=== PATIENT | female | born 1970 | race Caucasian/White ===

== ENCOUNTER → 2023-10-12 07:45 | Outpatient (REF) | payer OTHER, SELFPAY | LOC: EMG 07:45 | PROVIDERS: ATTENDING PHYSICIAN Orthopaedic Surgery; FAMILY PHYSICIAN Internal Medicine | DX: R20.0 Anesthesia of skin (principal) | CPT/HCPCS: 95886; 95911 ==

== ENCOUNTER → 2024-03-01 11:42 | Outpatient (REF) | payer OTHER, SELFPAY | LOC: WDC 11:42 | PROVIDERS: ATTENDING PHYSICIAN Internal Medicine | DX: Z12.31 Encounter for screening mammogram for malignant neoplasm of breast (principal) | CPT/HCPCS: 77063; 77067 ==

== ENCOUNTER 2024-08-27 11:55 | Observation (INO) | payer OTHER, SELFPAY ==
[2024-08-27] VITALS (7 sets, daily range): BP systolic 111–162; BP diastolic 46–99; BMI 30.2
[2024-08-27] MEDS: ZOFRAN 4 MG IV ×2 (06:41→07:08)
[2024-08-27] MEDS: NSS 1000 IV ×2 (06:42→16:52)
--- NOTE | 2024-08-27 06:43 | ED.GENMED ---
History of Present Illness
General
Chief Complaint: Abdominal Pain
Source: patient
Exam Limitations: none
Time Seen by Provider: 08/27/24 06:21
History of Present Illness
History of Present Illness:
54-year-old female some cough and fever 3 to 4 days. Started with GI symptoms in the last 24 hours. Recurrent vomiting. Loose watery stool. No abdominal pain. Some blood in the vomit. Mostly complaining of severe cramps and abdominal pain.
Along with nausea and vomiting. No unusual food ingestion. No travel history. Others are ill with respiratory symptoms although no GI symptoms.
Past History
Past History
ED Past Medical History: Psychiatric
ED Past Surgical History:
Social History
Tobacco: Non-smoker
Alcohol: Occasional
Personal:
Living: with family
Review of Systems
Review of Systems
All Other Systems: Not applicable
Constitutional: Reports fever
Respiratory: Reports cough
Cardiac: Denies chest pain
ABD/GI: Denies bloody stools or black stools
: Reports no symptoms
Phy Exam
Physical Exam
Physical Exam:
GENERAL: Alert and oriented. Not toxic appearing but moaning in pain. Somewhat agitated and cannot appear to get comfortable
EYE: Orbits normal.
NECK: Supple
CARDIAC: Regular rate and rhythm without any obvious murmurs.
LUNGS: Clear breath sounds,normal
ABDOMEN: Soft, bowel sounds present. No distention. No rebound or guarding. Mild reproducible epigastric tenderness.
NEUROLOGICAL: Alert and oriented , grossly non-focal
SKIN: Warm and dry, no rash or lesion, no discoloration, skin intact.
MUSCULOSKELETAL: No edema,no deformity.Good color
PSYCH: Normal and appropriate interaction.
Course
Orders/Labs/Results
Orders:
Orders
08/27/24 06:22
Electrocardiogram (*1) Stat
Reason for Study: Abdominal Pain
EKG- Treatment ONCE
IV Insert/Care/Rem.- Treatment PRN
Urinalysis Reflex To Culture Urgent
0.9% Sodium Chloride 1000 ml [Nss] 1,000 ml IV BOLUS
Ondansetron Injectable [Zofran] 4 mg IV NOW STA
08/27/24 06:35
Complete Blood Count/With Diff Urgent
Comprehensive Metabolic Panel Urgent
HCG, Serum Qualitative Screen Urgent
Lipase Urgent
CXR2 [CR Chest - 2 Views ] Urgent
Comment:
Reason For Exam: Cough/fever
08/27/24 06:36
CT Abd/Pel (IV only)-DH only Urgent
Comment:
Reason For Exam: Upper abdominal pain/vomiting/diarrhea
Test Result ONCE
08/27/24 06:46
COVID-19 Antigen Urgent
Source: Nasal Swab
Influenza A+B Rapid Molecular Urgent
[facility]ONTE Source: Nasal Swab
Specimen Description:
08/27/24 07:04
Lorazepam [Ativan] 1 mg IV NOW STA
Ondansetron Injectable [Zofran] 4 mg IV NOW STA
08/27/24 07:05
Ondansetron Injectable [Zofran] 4 mg .ROUTE .STK-MED ONE
08/27/24 07:06
Lorazepam [Ativan] 2 mg .ROUTE .STK-MED ONE
08/27/24 09:36
Diphenhydramine [Benadryl] 25 mg IV NOW STA
Prochlorperazine [Compazine] 5 mg IV NOW STA
08/27/24 09:37
Diphenhydramine [Benadryl] 50 mg .ROUTE .STK-MED ONE
08/27/24 09:38
Prochlorperazine [Compazine] 10 mg .ROUTE .STK-MED ONE
08/27/24 09:58
Ampicillin/Sulbactam 3 G [Unasyn] 3 gm 0.9% Sodium Chloride 100 ml [Nss] 100 ml IV NOW
08/27/24 10:44
Norovirus by PCR Urgent
[facility]ONTE Source: Feces/Stool
Specimen Description:
Date Specimen was Collected: 08/27/24
Time Specimen was Collected: 10:39
STOOL [C difficile Antigen & Toxins] Urgent
DEVONTE Source: Feces/Stool
Specimen Description:
Date Specimen was Collected: 08/27/24
Time Specimen was Collected: 10:39
Stool Culture Urgent
DEVONTE Source: Feces/Stool
Specimen Description:
Date Specimen was Collected: 08/27/24
Time Specimen was Collected: 10:39
08/27/24 11:35
Admit/Transfer Patient As Directed
Co-Sign Provider:
Level of Care: Inpatient admission
Assign to:: Medical/Surgical
Physician / Group: Elvis/hospitalist
Diagnosis: N/V/D
Reason for Hospitalization: N/V/D
Expected length of stay greater than two midnights?: Yes
ELOS- Estimated Length of Stay in days: 3
I certify the patient meets the requirements for IP care: Yes
Code Status As Directed
Resuscitation Status: Full Code
PRN Pain Medication Management As Directed
May give lesser potent ordered pain med per pt: Yes
preference::
Protocol:: Medication orders for pain may be administered in a
manner that supports deferring to patient preference
when the pt is:
- Requesting an ordered lesser potent pain medication.
Least to most potent pain medications are defined
as: acetaminophen < NSAID < tramadol < opioids
(morphine, oxycodone, hydromorphone).
- Requesting a lesser dose of the same medication IF
ORDERED.
- Requesting a less intrusive route of administration
if both routes are prescribed by the provider (PO <
IV).
08/27/24 12:00
Blood Culture Q30M
[facility]ONTE Source: Blood/Venous
Specimen Description:
Blood Culture Q30M
DEVONTE Source: Blood/Venous
Specimen Description:
08/27/24 12:16
Morphine Sulfate 1 mg IV Q4HPRN PRN
Abnormal Lab Results
08/27/24
06:35
BUN 19 H mg/dl
(7-17)
Glucose 154 H mg/dl
(70-99)
Calcium 10.3 H mg/dl
(8.4-10.2)
Total Bilirubin 1.6 H mg/dl
(0.2-1.3)
08/27/24 06:35
08/27/24 06:35
Vital Signs
Initial and Last Documented VS:
Initial Vital Signs
Pulse Resp BP Pulse Ox
92 26 134/93 97
08/27/24 06:16 08/27/24 06:16 08/27/24 06:16 08/27/24 06:16
Last Documented Vital Signs
Temp Pulse Resp BP Pulse Ox
97.5 F 93 14 162/88 96
08/27/24 07:00 08/27/24 12:02 08/27/24 12:02 08/27/24 12:02 08/27/24 12:02
MDM/Problems Addressed
Differential Diagnosis Includes:
Patient with some recent respiratory symptoms. This seemed to progress to more GI symptoms. Most suspicious for viral gastroenteritis however with patient's level of discomfort would consider a surgical abdomen. Labs CT stool culture neurovirus
testing. With the cough and respiratory symptoms we will check COVID and flu and chest x-ray.
*Pulse Oximetry
Patient hypoxic: no
*Critical Care Note
Total Time (30-74mins, 75-104mins- exclusive of procedures): Not Applicable
ED Attending Note
-
Portions of this chart may have been created with voice recognition software.� Occasional wrong word or��sound alike� substitutions may have occurred due to the inherent limitations of voice recognition software.
Discharge Plan
Departure
Patient Disposition: Admit
Date of Disposition: 08/27/24
Time of Disposition: 09:55
Presentation/result/management discussed w/ accepting MD/DO: Hospitalist
Discharge Problem:
Pain colitis/diverticulitis
Interventions
Interventions:
*General Assessment Last Done: 08/27/24 06:40
*Neglect/Abuse Screening Last Done: 08/27/24 06:40
ED- Fall Risk Assessment Last Done: 08/27/24 06:40
*ED COVID-19 Vaccine History Last Done: 08/27/24 06:40
OK-Juebzv-Lyimgwwyev Assessment Last Done: 08/27/24 06:40
[2024-08-27 07:02] LABS: % Basophils 0.4 % (0-2); % Eosinophils 0.7 % (0-6); % Immature Granulocytes 0.3 % (0-0.5); % Lymphocytes 28.4 % (20.5-51.1); % Monocytes 4.7 % (1.7-9.3); % Neutrophils 65.5 % (42.2-75.2); Absolute Eosinophils 0.1 10^3/uL (0-0.7); Absolute Lymphocytes 2.8 10^3/uL (1.2-3.4); Absolute Monocytes 0.5 10^3/uL (0.1-0.6); Absolute Neutrophils 6.5 10^3/uL (1.4-6.5); Hematocrit 42.3 % (37.0-47.0); Hemoglobin 14.5 g/dL (12.0-16.0); Mean Corp Hgb Conc. 34.3 g/dL (33.0-37.0); Mean Corpuscular Hgb 27.9 pg (27.0-31.0); Mean Corpuscular Volume 81.3 fL (81.0-99.0); Mean Platelet Volume 9.7 fL (7.4-10.4); Nucleated Red Blood Cells % 0 %; Platelet Count 367 10^3/uL (130-400); Red Cell Dist. Width 12.8 % (11.5-14.5)
[2024-08-27] MEDS: ATIVAN 1 MG IV (07:08)
[2024-08-27 07:14] LABS: ALT (SGPT) 23 U/L (0-35); AST (SGOT) 22 U/L (14-36); Albumin 4.9 g/dl (3.5-5.0); Alkaline Phosphatase 50 U/L (38-126); Blood Urea Nitrogen 19 mg/dl (7-17); Calcium 10.3 mg/dl (8.4-10.2); Carbon Dioxide 22 mmol/L (22-30); Chloride 104 mmol/L (98-107); Estimated Creatinine Clearance 113 ml/min; Glucose 154 mg/dl (70-99); Lipase 76 U/L (23-300); Sodium 141 mmol/L (135-145); Total Bilirubin 1.6 mg/dl (0.2-1.3); Total Protein 7.6 g/dl (6.3-8.2); eGFR > 60.00
[2024-08-27 07:36] LABS: HCG, Serum Qualitative Screen Negative
[2024-08-27 07:37] LABS: COVID-19 Antigen Negative (Negative)
[2024-08-27] MEDS: COMPAZINE 5 MG IV ×3 (09:39→17:07)
[2024-08-27] MEDS: BENADRYL 25 MG IV (09:39)
[2024-08-27] MEDS: UNASYN IV (10:40)
--- NOTE | 2024-08-27 11:21 | HPS.HSE ---
Family Physician
-
Family Physician: Louie Ocampo
Chief Complaint
-
N/V/D, abd cramp
History of Present Illness
HPI: 54-year-old female with PMH anxiety; p/w N/V, severe abdominal pain/cramp and watery stool for 24 hours.
She also c/o mild cough and fever 3 to 4 days [employer]. She denies to cough currently, denies to other symptoms.
Family at home are sick with respiratory symptoms without GI symptoms.
Medical History
Past Medical History
Past Medical History: Reports Other
Additional Past Medical History:
anxiety
Past Surgical History: Reports (x2) and Orthopedic (R carpal tunnel surgery )
Social History
Tobacco: Non-smoker
Alcohol: None
Personal:
Living: With Family
Family History
Family History: Not pertinent
Allergies / Home Medications
Allergies reflects when Allergies were last updated in [facility].
Home Medications with original date entered in [facility]
Allergy/Medication List:
Allergies
Allergy/AdvReac Type Severity Reaction Status Date / Time
No Known Allergies Allergy Verified 08/27/24 06:10
Home Medications
alprazolam 0.5 mg tablet 0.5 mg PO DAILYPRN PRN anxiety/insomnia 10/08/15
citalopram 20 mg tablet 20 mg PO DAILY 10/08/15
acetaminophen 325 mg tablet (Tylenol) 650 mg PO Q4HPRN PRN mild pain 08/27/24
meloxicam 15 mg tablet 15 mg PO DAILY 08/27/24
Review of Systems
-
Respiratory: Denies Cough or Trouble Breathing
Abdomen/GI: Reports See HPI, Abdominal Pain, Nausea, Vomiting and Diarrhea
Physical Exam
Vital Signs
Vital Signs
Temp Pulse Resp BP Pulse Ox
36.4 C 98 24 148/97 100
08/27/24 07:00 08/27/24 09:47 08/27/24 09:47 08/27/24 09:47 08/27/24 09:47
Physical Exam
General: Well Developed, Well Nourished, No Apparent Distress and Conversant
HEENT: NormoCephalic, Moist mucous membranes and Atraumatic
Respiratory: Clear and Non Labored Respirations; No Accessory Resp Muscle Use
Cardiac: S1/S2 and Regular Rhythm; No Murmur or Rub
GI: Soft, Non Tender, Non Distended and Normal Bowel Sounds; No Organomegaly
Rectal: Deferred by Provider
Musculoskeletal: No Clubbing, No Cyanosis and No Edema
Skin: No Rash
Neuro: Awake and Alert
Psych: Calm and Intact Judgment/Insight
Laboratory Results
-
08/27/24 06:35
08/27/24 06:35
Laboratory Results
Total Bilirubin 1.6 mg/dl (0.2-1.3) H 08/27/24 06:35
AST 22 U/L (14-36) 08/27/24 06:35
ALT 23 U/L (0-35) 08/27/24 06:35
Alkaline Phosphatase 50 U/L (38-126) 08/27/24 06:35
Lipase 76 U/L (23-300) 08/27/24 06:35
Data Reviewed
-
CT Scan: Report Reviewed by me
Lab Data: Labs Reviewed by me
Impression/Plan
-
HPI: 54-year-old female with PMH anxiety; p/w N/V, severe abdominal pain/cramp and watery stool for 24 hours.
She also c/o mild cough and fever 3 to 4 days [employer]. She denies to cough currently, denies to other symptoms.
Family at home are sick with respiratory symptoms without GI symptoms.
A/P:
# GI symptoms likely acute GE, possible norovirus with current community outbreak
Follow stool Norovirus, C diff, stool culture
Noted CT AP with mild acute uncomplicated sigmoid diverticulitis. Probable sequelae of chronic pancolitis.
cover with Zosyn for the mild diverticulitis
IVF support
Clears for now
pain control with Tylenol and low dose morphine PRN
# Mild cough, resolved
# fever [employer]
family members with cough
COVID/Flu negative
Check blood culture (pt already received Unasyn in the ED)
on Zosyn as above
# h/o anxiety on Citalopram and Alprazolam PRN
Mood stable
DVT ppx: Lovenox SQ
FC
[2024-08-27] MEDS: MORPHINE SULFATE 1 MG IV ×2 (13:00→17:07)
[2024-08-27] MEDS: TIGAN 200 MG IM (15:15)
[2024-08-27] MEDS: ZOSYN 50 IV ×2 (16:51→21:44)
[2024-08-27] MEDS: PEPCID 20 MG IV (18:07)
[2024-08-27] MEDS: NSS (PRESERVATIVE FREE) 8 ML IV (18:08)
[2024-08-28] MEDS: ZOSYN 50 IV ×2 (03:30→10:09)
[2024-08-28] MEDS: NSS 1000 IV (03:30)
[2024-08-28 06:38] LABS: Hematocrit 36.3 % (37.0-47.0); Hemoglobin 12.1 g/dL (12.0-16.0); Mean Corp Hgb Conc. 33.3 g/dL (33.0-37.0); Mean Corpuscular Hgb 27.8 pg (27.0-31.0); Mean Corpuscular Volume 83.4 fL (81.0-99.0); Mean Platelet Volume 10.3 fL (7.4-10.4); Platelet Count 246 10^3/uL (130-400); Red Blood Cell Count 4.35 10^6/uL (4.20-5.40); Red Cell Dist. Width 13.2 % (11.5-14.5); White Blood Cell Count 7.8 10^3/uL (4.8-10.8)
[2024-08-28 06:59] LABS: Blood Urea Nitrogen 15 mg/dl (7-17); Calcium 8.9 mg/dl (8.4-10.2); Carbon Dioxide 23 mmol/L (22-30); Chloride 110 mmol/L (98-107); Estimated Creatinine Clearance 97 ml/min; Glucose 101 mg/dl (70-99); Potassium 3.6 mmol/L (3.5-5.1); Sodium 143 mmol/L (135-145); eGFR > 60.00
[2024-08-28 07:48] VITALS: BP 140/90
[2024-08-28] MEDS: TYLENOL 650 MG PO (08:07)
[2024-08-28 08:09] LABS: Urine Albumin Trace (Neg - Trace); Urine Bilirubin Negative (Negative); Urine Character Clear (Clear); Urine Color Yellow; Urine Glucose Negative (Negative); Urine Ketone Trace (Negative); Urine Leukocyte Trace (Negative); Urine Nitrite Negative (Negative); Urine Occult Blood 1+ (Negative); Urine Specific Gravity 1.025 (<1.030); Urine Urobilinogen Negative (Neg - 1+)
[2024-08-28] MEDS: PEPCID 20 MG IV (08:18)
[2024-08-28] MEDS: CELEXA 20 MG PO (08:18)
[2024-08-28] MEDS: MOBIC 15 MG PO (08:18)
[2024-08-28 08:24] LABS: Amphetamines Positive (Negative)
[2024-08-28 08:25] LABS: Barbiturates Negative (Negative); Benzodiazepines Positive (Negative); Buprenorphine Negative (Negative); Cocaine Positive (Negative); Methadone Negative (Negative); Methamphetamines Positive (Negative); Opiates Positive (Negative)
[2024-08-28 08:26] LABS: Marijuana Positive (Negative); Phencyclidine Negative (Negative); Tricyclic Antidepressants Negative (Negative)
[2024-08-28 09:01] LABS: Fentanyl, Urine Negative (Negative)
[2024-08-28] MEDS: NSS (PRESERVATIVE FREE) 8 ML IV (09:06)
[2024-08-28 09:24] LABS: Urine Squamous Cell >30 /LPF (Few)
[2024-08-28 09:25] LABS: Urine Amorphous Seen
[2024-08-28 09:26] LABS: Urine Bacteria Few (Negative)
--- NOTE | 2024-08-28 11:58 | W.PN.HOSP.TC ---
Addendum entered and electronically signed by Ignacia Leal MD 08/28/24 15:03:
total DC time 36 min
Original Note:
Today's Communication/Plan
-
see A/P
Assessment / Plan
Assessment / Plan
HPI: 54-year-old female with PMH anxiety; p/w N/V, severe abdominal pain/cramp and watery stool for 24 hours.
She also c/o mild cough and fever 3 to 4 days [employer]. She denies to cough currently, denies to other symptoms.
Family at home are sick with respiratory symptoms without GI symptoms.
A/P:
# GI symptoms likely cyclic vomiting syndrome
UDS positive for amphetamine, methamphetamine, benzo, cocaine, marijuana, opiate
Norovirus and C diff negative. Can follow stool culture for completeness sake
Noted CT AP with mild acute uncomplicated sigmoid diverticulitis. Probable sequelae of chronic pancolitis.
IV Zosyn -> Augmentin x5 days total for the mild diverticulitis. Probiotic with Abx
Advance clears to regular solid
pain control with Tylenol and low dose morphine PRN
Outpt GI follow up in 4 weeks
# Mild cough, resolved
# fever [employer]
family members with cough
COVID/Flu negative
Follow blood culture (pt already received Unasyn in the ED)
on Zosyn as above
# h/o anxiety on Citalopram and Alprazolam PRN
Mood stable
DVT ppx: Lovenox SQ
FC
Anticipated Discharge: Today
Subjective/Interval History
-
Date of Service: August 28, 2024
Objective Data
-
Labs:
Laboratory Results
08/28/24
06:09
WBC 7.8
Hgb 12.1
Hct 36.3 L
Plt Count 246 D
Sodium 143
Potassium 3.6
Chloride 110 H
Carbon Dioxide 23
BUN 15
Creatinine 0.7
Glucose 101 H
Calcium 8.9
Vital Signs:
Vital Signs
Temp Pulse Resp BP Pulse Ox
36.9 C 74 15 140/90 97
08/27/24 22:53 08/28/24 07:48 08/28/24 07:48 08/28/24 07:48 08/28/24 07:48
Review of Systems
-
All other systems: Reviewed and negative
Abdomen/GI: Denies Abdominal Pain, Nausea, Vomiting or Diarrhea
Physical Exam
-
General: Well Developed, Well Nourished, No Apparent Distress, Comfortable and Conversant; Negative Respiratory Distress
HEENT: Normocephalic, Atraumatic, Nose Appears Normal and Ears Appear Normal; Negative Oxygen
Respiratory: Clear to Auscultation and Non Labored Respirations; Negative Accessory Resp Muscle Use
Cardiac: Regular Rhythm and S1/S2
GI: Soft, Nontender, Nondistended and Normal Bowel Sounds
Skin: Warm and Dry
Neuro: Awake and Alert
Psych: Calm and Intact Judgement/Insight
Data Reviewed
-
CT Scan: Report Reviewed by me
Labs: Labs Reviewed by me
[2024-08-28] MEDS: VISBIOME 1 CAP PO (12:47)
--- NOTE | 2024-08-28 13:18 | EDRN ---
D/C instructions given to pt. Reviewed next meds. Reviewed diet
--- NOTE | 2024-08-28 14:21 | W.DCSUMMARY ---
Discharge Summary
Discharge Data
Date of Admission: 08/27/24
Date of Discharge: 08/28/24
-
Pending Results: No
Hospital Course
Principal Diagnosis:
Nausea, vomiting, severe abdominal pain/cramp with watery stool, likely cyclic vomiting syndrome
CT scan noted possible mild acute uncomplicated sigmoid diverticulitis
Chronic Diagnoses:�
Anxiety on Citalopram and Alprazolam as needed
Consultations:�
None
Procedures:�
None
Clinical course:�
This is a 54-year-old female with past medical history as stated above, who presented with nausea, vomiting and severe abdominal pain/cramp with watery stool.
Problem 1:
GI symptoms likely due to cyclic vomiting syndrome.
Her UDS was noted to be positive for amphetamine, methamphetamine, benzo, cocaine, marijuana, and opiate.
Her Norovirus and C diff tests were negative.
Her CT AP noted mild acute uncomplicated sigmoid diverticulitis, probable sequelae of chronic pancolitis.
Due to the CT scan finding, she was treated with Zosyn, and this was changed to Augmentin to continue/complete 5 days course.
Her diet was advanced to regular solid food and she tolerated well.
She can follow-up with GI outpatient in 4 weeks to evaluate for colonoscopy in setting of CT finding of acute mild diverticulitis.
As for the rest of her medical problems, they were stable during her hospital stay.
Discharge Plan
-
Patient Disposition: Home (Routine Discharge)
Discharge Diagnosis/Procedures: GI symptoms likely cyclic vomiting syndrome versus mild acute uncomplicated sigmoid diverticulitis.
Condition: Good
Diet: As tolerated
Activity: As tolerated
Driving Restrictions: As prior to admission
Activity Restrictions/Additional Instructions:
Follow up with GI in 4 weeks to evaluate for routine C scope (CT AP noted mild acute uncomplicated sigmoid diverticulitis)
Referrals:
Louie Ocampo I., DO [Family Provider] - in less than 1 week
Additional Discharge Medication Instructions: Continue Levaquin and Flagyl for 5 more days, along with probiotic
Prescriptions:
New
levofloxacin 750 mg tablet
750 mg PO DAILY 5 Days Qty: 5 0RF
metronidazole 500 mg tablet
500 mg PO Q8H 5 Days Qty: 15 0RF
Probiotic 3 billion cell capsule
3,000 mmu cells PO DAILY 7 Days Qty: 7 0RF
Continued
alprazolam 0.5 MG tablet
0.5 mg PO DAILYPRN PRN (Reason: anxiety/insomnia)
citalopram 20 MG tablet
20 mg PO DAILY
acetaminophen [Tylenol] 325 mg Tablet
650 mg PO Q4HPRN PRN (Reason: mild pain)
meloxicam 15 mg Tablet
15 mg PO DAILY
Discharge Orders:
Discharge Patient (As Directed); Ordered 08/28/24
Ordered By: Ignacia Leal
Discharge Date and Time
Discharge Date/Time: 08/28/24 13:30
Print Language: BULGARIAN
== END 2024-08-28 13:30 | disposition home or self-care (01) ==
LOC: ED 11:55
PROVIDERS: ADMITTING PHYSICIAN Internal Medicine; EMERGENCY PHYSICIAN Emergency Medicine; FAMILY PHYSICIAN Internal Medicine
DX: R11.15 Cyclical vomiting syndrome unrelated to migraine (principal); R10.9 Unspecified abdominal pain; R11.2 Nausea with vomiting, unspecified; R19.7 Diarrhea, unspecified; K57.32 Diverticulitis of large intestine without perforation or abscess without bleeding; F41.9 Anxiety disorder, unspecified; K76.0 Fatty (change of) liver, not elsewhere classified; Z79.1 Long term (current) use of non-steroidal anti-inflammatories (NSAID); Z11.52 Encounter for screening for COVID-19
CPT/HCPCS: 71046; 74177; 80048; 80053; 80306; 80307; 81003; 81015; 83690; 83735; 84703; 85025; 85027; 87040; 87045; 87046; 87086; 87324; 87427; 87449; 87502; 87798; 87811; 93005; 96361; 96365; 96367; 96375; 96376; 99285; G0378; Q9967

== ENCOUNTER 2024-10-02 14:52 | Emergency (ER) | payer OTHER, SELFPAY ==
[2024-10-02 15:01] VITALS: BP 128/85
--- NOTE | 2024-10-02 15:03 | ED.GENMED ---
ED Provider Triage
<Ale Hanley REAL ESTATE SALES MANAGER - Last Filed: 10/02/24 15:08>
-
Patient seen by provider in Triage?: Seen in Triage
Attestation: A medical screening examination has been initiated by a qualified medical provider. Based on the assessment performed at this time, it has been determined that an emergent medical condition may exist and the patient has been informed
that further medical evaluation and possible additional diagnostic testing may be needed.
HPI: 54-year-old female states she was here last month and diagnosed with diverticulitis and colitis, finished Levaquin and Flagyl. She feels like she is having 'an episode.' that feels similar. She has an appointment in January for the GI doctor.
States at 2 AM she had diarrhea and vomiting with black tarry stools. Vomited several times. At this time she does not feel nauseous. Denies fever but has had some cold sweats.
Denies chest pain or trouble breathing.
GENERAL: Alert , in no apparent distress
EYE: No visual abnormalities.
NECK: Trachea midline
ENT: No visible abnormalities.
LUNGS: No acute respiratory distress
NEUROLOGICAL: Alert and oriented
SKIN: Skin intact. No visible changes.
MUSCULOSKELETAL: Moving extremities normally
PSYCH: Normal and appropriate interaction.
This is a medical evaluation conducted in person to initiate diagnostic evaluation and provide initial therapeutics. Please see further documentation by the treating clinician.
History of Present Illness
<Ale Hanley REAL ESTATE SALES MANAGER - Last Filed: 10/02/24 15:08>
General
Chief Complaint: Abdominal Pain
Time Seen by Provider: 10/02/24 16:37
<Kerry Romero PA-C - Last Filed: 10/03/24 00:41>
General
Source: patient
Exam Limitations: none
Nursing documentation reviewed up to this point in time: agreed with
History of Present Illness
History of Present Illness:
Patient is a 54-year-old female presenting to the emergency department for evaluation of nausea, vomiting, diarrhea. Patient reports acute onset upper abdominal discomfort accompanied by nausea and vomiting around 2 AM in the morning. She has also
had a few episodes of diarrhea. No known fever although does report cold sweats. Patient states vomiting episodes appear to come in cycles and are very intense. Patient denies any hematemesis. No dysuria or other urinary symptoms.
Patient does report history of very similar symptoms, almost identical about a month ago for which she was admitted to the hospital for 1 night. At that time she was found to have mild diverticulitis.
Past History
<Ale Hanley [employer] ESTATE SALES MANAGER - Last Filed: 10/02/24 15:08>
Past History
ED Past Medical History: Psychiatric
ED Past Surgical History:
Social History
Tobacco: Non-smoker
Alcohol: Occasional
Personal:
Living: with family
Review of Systems
<Kerry Romero PA-C - Last Filed: 10/03/24 00:41>
Review of Systems
Allergies reviewed?: Yes
All Other Systems: ROS reviewed and negative except as documented in HPI and ROS
Phy Exam
<Kerry Romero PA-C - Last Filed: 10/03/24 00:41>
Physical Exam
Physical Exam:
Vitals: Mildly hypertensive, otherwise vital signs stable. Afebrile
General: Patient is in mild distress, actively react
Skin: Warm and dry, no rashes or lesions
Head: Normocephalic, atraumatic
Eyes: Sclera nonicteric. EOMs intact. No nystagmus.
Throat: Protecting airway
Neck: Normal ROM, no cervical spine tenderness, no meningismus
Cardiac: Regular rate and rhythm, no murmurs.
Pulm: Normal respiratory effort, no wheezes, rales, rhonchi heard on exam.
Abdomen: Abdomen soft. Mild epigastric abdominal tenderness. No rebound tenderness or guarding. No CVA tenderness
Extremities: No evidence of cyanosis or edema. Palpable DP pulses bilaterally
Neuro: AAOx3. Grossly intact
Psychiatric: Normal affect.
Course
<Ale Hanley [employer]STATE SALES MANAGER - Last Filed: 10/02/24 15:08>
Orders/Labs/Results
Orders:
Orders
10/02/24 15:06
CT Abd/Pel (IV only)-[facility] only Urgent
Comment:
Reason For Exam: mid lower abd pain, recent colitis/diverticulitis
Test Result ONCE
10/02/24 15:11
Complete Blood Count/With Diff Urgent
Comprehensive Metabolic Panel Urgent
HCG, Serum Qualitative Screen Urgent
Lipase Urgent
10/02/24 16:46
Ondansetron Injectable [Zofran] 4 mg .ROUTE .STK-MED ONE
10/02/24 16:47
0.9% Sodium Chloride 1000 ml [Nss] 1,000 ml IV BOLUS
Ketorolac [Toradol] 15 mg IV NOW STA
10/02/24 16:49
Electrocardiogram (*1) Urgent
Reason for Study: Abdominal Pain
EKG- Treatment ONCE
10/02/24 16:53
Ondansetron Injectable [Zofran] 4 mg IV NOW STA
10/02/24 17:20
Lorazepam [Ativan] 1 mg IV NOW STA
Abnormal Lab Results
10/02/24
15:11
Absolute Neuts (auto) 7.9 H 10^3/uL
(1.4-6.5)
Absolute Lymphs (auto) 0.7 L 10^3/uL
(1.2-3.4)
Neutrophils % 88.5 H %
(42.2-75.2)
Lymphocytes % 8.2 L %
(20.5-51.1)
Creatinine 0.5 L mg/dL
(0.6-1.0)
Glucose 142 H mg/dl
(70-99)
Calcium 10.3 H mg/dl
(8.4-10.2)
ALT 45 H U/L
(0-35)
Albumin 5.2 H g/dl
(3.5-5.0)
10/02/24 15:11
10/02/24 15:11
Vital Signs
Initial and Last Documented VS:
Initial Vital Signs
Temp Pulse Resp BP Pulse Ox
98.4 F 97 16 128/85 97
10/02/24 15:01 10/02/24 15:01 10/02/24 15:01 10/02/24 15:01 10/02/24 15:01
Last Documented Vital Signs
Temp Pulse Resp BP Pulse Ox
98.4 F 103 18 146/83 98
10/02/24 15:01 10/02/24 19:38 10/02/24 19:38 10/02/24 19:38 10/02/24 19:38
<Kerry Romero PA-C - Last Filed: 10/03/24 00:41>
Orders/Labs/Results
Orders:
Orders
10/02/24 15:06
CT Abd/Pel (IV only)-[facility] only Urgent
Comment:
Reason For Exam: mid lower abd pain, recent colitis/diverticulitis
Test Result ONCE
10/02/24 15:11
Complete Blood Count/With Diff Urgent
Comprehensive Metabolic Panel Urgent
HCG, Serum Qualitative Screen Urgent
Lipase Urgent
10/02/24 16:46
Ondansetron Injectable [Zofran] 4 mg .ROUTE .STK-MED ONE
10/02/24 16:47
0.9% Sodium Chloride 1000 ml [Nss] 1,000 ml IV BOLUS
Ketorolac [Toradol] 15 mg IV NOW STA
10/02/24 16:49
Electrocardiogram (*1) Urgent
Reason for Study: Abdominal Pain
EKG- Treatment ONCE
10/02/24 16:53
Ondansetron Injectable [Zofran] 4 mg IV NOW STA
10/02/24 17:20
Lorazepam [Ativan] 1 mg IV NOW STA
Abnormal Lab Results
10/02/24
15:11
Absolute Neuts (auto) 7.9 H 10^3/uL
(1.4-6.5)
Absolute Lymphs (auto) 0.7 L 10^3/uL
(1.2-3.4)
Neutrophils % 88.5 H %
(42.2-75.2)
Lymphocytes % 8.2 L %
(20.5-51.1)
Creatinine 0.5 L mg/dL
(0.6-1.0)
Glucose 142 H mg/dl
(70-99)
Calcium 10.3 H mg/dl
(8.4-10.2)
ALT 45 H U/L
(0-35)
Albumin 5.2 H g/dl
(3.5-5.0)
10/02/24 15:11
10/02/24 15:11
Vital Signs
Initial and Last Documented VS:
Initial Vital Signs
Temp Pulse Resp BP Pulse Ox
98.4 F 97 16 128/85 97
10/02/24 15:01 10/02/24 15:01 10/02/24 15:01 10/02/24 15:01 10/02/24 15:01
Last Documented Vital Signs
Temp Pulse Resp BP Pulse Ox
98.4 F 103 18 146/83 98
10/02/24 15:01 10/02/24 19:38 10/02/24 19:38 10/02/24 19:38 10/02/24 19:38
<Kerry Romero PA-C - Last Filed: 10/03/24 00:41>
MDM/Problems Addressed
Differential Diagnosis Includes:
Not limited to: Viral gastroenteritis, cannabis hyperemesis, pancreatitis, cholecystitis, diverticulitis, etc.
MDM/Problems Addressed:
54-year-old female presenting with acute onset nausea, vomiting, diarrhea this morning. No fevers or urinary symptoms. Patient with history of similar symptoms about 1 month ago. Mildly hypertensive, otherwise arrives with stable vital signs.
Labs initiated in triage without any clinically significant abnormalities. No leukocytosis. Lipase normal. test negative. On exam�patient is actively retching and in moderate distress. However�abdomen is soft with very minimal
tenderness in epigastric region without rebound tenderness or guarding. Relatively benign abdominal exam. Lower suspicion for acute intra-abdominal infection although CT scan was initiated in triage. Will give IV fluids, Zofran, pain control and
reassess. Ultimately�suspect likely cyclical vomiting syndrome similar to prior episode�patient does endorse marijuana smoking daily. Will closely monitor and reassess.
Update: CT report reviewed. Acute uncomplicated colitis of proximal sigmoid colon noted. On reassessment�patient is resting comfortably. Impression is likely cyclical vomiting syndrome possibly cannabis induced. Patient tolerated full cup of ice
chips without vomiting or nausea. Patient feeling much better, conversational and smiling. Given finding of mild colitis on CT scan with history of diarrhea�will provide patient with paper prescription for antibiotic if diarrhea/symptoms
persist/worsen. Overall�will recommend Zofran, p.o. fluids. Advised patient to avoid marijuana smoking. Patient will follow closely with primary care this week and has a GI follow-up scheduled. Very close return precaution discussed. Patient
and patient's daughter comfortable with plan case discussed with attending physician.
Chronic conditions affecting care:
History of diverticulitis
Acute Exacerbation and/or Progression of Chronic Illness:
N/A
<Kerry Romero PA-C - Last Filed: 10/03/24 00:41>
*Radiology
Radiology exam reviewed: radiology read reviewed
*Pulse Oximetry
Patient hypoxic: no
*EKG
Interpreted by ED Provider?: NA
*Esthetician Interpretation
Rate: Esthetician- N/A
*Critical Care Note
Total Time (30-74mins, 75-104mins- exclusive of procedures): Not Applicable
Data Reviewed
Review of Other/Old Records Reveals: Records (Discharge summary from 08/28/2024 for cyclical vomiting syndrome)
ED Attending Note
<Ale Hanley [employer] ESTATE SALES MANAGER - Last Filed: 10/02/24 15:08>
-
Portions of this chart may have been created with voice recognition software.� Occasional wrong word or��sound alike� substitutions may have occurred due to the inherent limitations of voice recognition software.
Discharge Plan
Departure
Patient Disposition: Home (Routine Discharge)
Date of Disposition: 10/02/24
Time of Disposition: 19:18
Patient with high blood pressure during this ER visit?: Yes
Condition: Good
Covid-19: Not Applicable
Discharge Problem:
Cyclical vomiting, Colitis
Instructions: Nausea and Vomiting, Adult (DC), Cannabis hyperemesis syndrome, Colitis
Prescriptions:
New
amoxicillin-pot clavulanate 875-125 mg tablet
1 tab PO BID 10 Days Qty: 20 0RF
No Action
alprazolam 0.5 MG tablet
0.5 mg PO DAILYPRN PRN (Reason: anxiety/insomnia)
citalopram 20 MG tablet
20 mg PO DAILY
acetaminophen [Tylenol] 325 mg Tablet
650 mg PO Q4HPRN PRN (Reason: mild pain)
meloxicam 15 mg Tablet
15 mg PO DAILY
levofloxacin 750 mg tablet
750 mg PO DAILY 5 Days Qty: 5 0RF
metronidazole 500 mg tablet
500 mg PO Q8H 5 Days Qty: 15 0RF
Probiotic 3 billion cell capsule
3,000 mmu cells PO DAILY 7 Days Qty: 7 0RF
Referrals:
Louie Ocampo I., DO [Family Provider] - Follow up in 2-3 days
Activity Restrictions/Additional Instructions:
Return to the emergency department with any fevers, intractable nausea/vomiting, severe abdominal pain, signs of severe dehydration, worsening current symptoms, or any other concern
-It is important stay well-hydrated. I recommend a bland/low fiber diet over the next 2 days and slowly advance as tolerated.
-You can take Tylenol and/or Motrin as needed for discomfort. I would recommend avoiding marijuana as this may be contributing to symptoms.
-You have been sent home with an antibiotic prescription. You can initiate this in 2 days if diarrhea persist/worsens. With any severe worsening symptoms please return to the emergency department
-Follow-up with GI/primary care for further evaluation/management as needed
Monitor your symptoms closely and return to the emergency department with any acute worsening/new symptoms or any other concerns
Interventions
Interventions:
*Risk Screen - Suicide Last Done: 10/02/24 15:01
*General Assessment Last Done: 10/02/24 15:01
*Neglect/Abuse Screening Last Done: 10/02/24 15:01
*ED COVID-19 Vaccine History Last Done: 10/02/24 16:34
*Nursing Disposition Last Done: 10/02/24 19:38
QS-[id number] Assessment Last Done: 10/02/24 16:34
Discharge Date and Time
Discharge Date/Time: 10/02/24 19:38
Print Language: PASHTO
[2024-10-02 15:29] LABS: % Basophils 0.2 % (0-2); % Immature Granulocytes 0.3 % (0-0.5); % Lymphocytes 8.2 % (20.5-51.1); % Monocytes 2.8 % (1.7-9.3); % Neutrophils 88.5 % (42.2-75.2); Absolute Lymphocytes 0.7 10^3/uL (1.2-3.4); Absolute Monocytes 0.3 10^3/uL (0.1-0.6); Absolute Neutrophils 7.9 10^3/uL (1.4-6.5); Hematocrit 40.4 % (37.0-47.0); Hemoglobin 13.6 g/dL (12.0-16.0); Mean Corp Hgb Conc. 33.7 g/dL (33.0-37.0); Mean Corpuscular Hgb 27.8 pg (27.0-31.0); Mean Corpuscular Volume 82.6 fL (81.0-99.0); Mean Platelet Volume 9.9 fL (7.4-10.4); Nucleated Red Blood Cells % 0 %; Platelet Count 368 10^3/uL (130-400); Red Blood Cell Count 4.89 10^6/uL (4.20-5.40); Red Cell Dist. Width 13.6 % (11.5-14.5); White Blood Cell Count 8.9 10^3/uL (4.8-10.8)
[2024-10-02 15:41] LABS: HCG, Serum Qualitative Screen Negative
[2024-10-02 15:45] LABS: ALT (SGPT) 45 U/L (0-35); AST (SGOT) 32 U/L (14-36); Albumin 5.2 g/dl (3.5-5.0); Alkaline Phosphatase 50 U/L (38-126); Blood Urea Nitrogen 17 mg/dl (7-17); Calcium 10.3 mg/dl (8.4-10.2); Carbon Dioxide 23 mmol/L (22-30); Chloride 105 mmol/L (98-107); Glucose 142 mg/dl (70-99); Potassium 3.9 mmol/L (3.5-5.1); Sodium 143 mmol/L (135-145); Total Bilirubin 1.2 mg/dl (0.2-1.3); eGFR > 60.00
[2024-10-02 15:46] LABS: Lipase 51 U/L (23-300)
[2024-10-02] MEDS: NSS 1000 IV (16:49)
[2024-10-02] MEDS: TORADOL 15 MG IV (16:50)
[2024-10-02] MEDS: ZOFRAN 4 MG IV (16:53)
[2024-10-02] MEDS: ATIVAN 1 MG IV (17:26)
[2024-10-02 19:38] VITALS: BP 146/83
== END 2024-10-02 19:38 | disposition home or self-care (01) ==
LOC: EMR 14:52
PROVIDERS: Registered Nurse; EMERGENCY PHYSICIAN Emergency Medicine; FAMILY PHYSICIAN Internal Medicine
DX: R11.15 Cyclical vomiting syndrome unrelated to migraine (principal); K52.9 Noninfective gastroenteritis and colitis, unspecified; R19.7 Diarrhea, unspecified; K57.92 Diverticulitis of intestine, part unspecified, without perforation or abscess without bleeding
CPT/HCPCS: 99284; 96375 ×2; 96361; 96374; 74177; 80053; 83690; 84703; 85025; Q9967

== ENCOUNTER → 2024-12-11 11:27 | Outpatient (REF) | payer OTHER, SELFPAY ==
[2024-12-11 12:12] LABS: % Basophils 1.1 % (0-2); % Eosinophils 2.8 % (0-6); % Immature Granulocytes 0.2 % (0-0.5); % Lymphocytes 32.6 % (20.5-51.1); % Monocytes 6.4 % (1.7-9.3); % Neutrophils 56.9 % (42.2-75.2); Absolute Basophils 0.1 10^3/uL (0-0.2); Absolute Eosinophils 0.2 10^3/uL (0-0.7); Absolute Lymphocytes 1.8 10^3/uL (1.2-3.4); Absolute Monocytes 0.4 10^3/uL (0.1-0.6); Absolute Neutrophils 3.2 10^3/uL (1.4-6.5); Hematocrit 38.4 % (37.0-47.0); Hemoglobin 13.2 g/dL (12.0-16.0); Mean Corp Hgb Conc. 34.4 g/dL (33.0-37.0); Mean Corpuscular Hgb 28.3 pg (27.0-31.0); Mean Corpuscular Volume 82.4 fL (81.0-99.0); Mean Platelet Volume 10.2 fL (7.4-10.4); Nucleated Red Blood Cells % 0 %; Platelet Count 309 10^3/uL (130-400); Red Blood Cell Count 4.66 10^6/uL (4.20-5.40); Red Cell Dist. Width 13.2 % (11.5-14.5); White Blood Cell Count 5.7 10^3/uL (4.8-10.8)
[2024-12-11 13:06] LABS: ALT (SGPT) 21 U/L (0-35); AST (SGOT) 25 U/L (14-36); Albumin 4.7 g/dl (3.5-5.0); Alkaline Phosphatase 38 U/L (38-126); Blood Urea Nitrogen 21 mg/dl (7-17); Calcium 10.2 mg/dl (8.4-10.2); Carbon Dioxide 30 mmol/L (22-30); Chloride 104 mmol/L (98-107); Glucose 87 mg/dl (70-99); HDL Cholesterol 73 mg/dl; LDL Cholesterol, Calculated 139 mg/dl; Potassium 4.7 mmol/L (3.5-5.1); Sodium 141 mmol/L (135-145); Total Bilirubin 1.5 mg/dl (0.2-1.3); Total Cholesterol 228 mg/dl (50-199); Total Protein 7.4 g/dl (6.3-8.2); Triglyceride 81 mg/dl (10-149); Very Low Density Lipoprotein 16 mg/dl (0-30); eGFR > 60.00
[2024-12-11 13:35] LABS: TSH Reflex To Free T4 1.25 uIU/ml (0.47-4.68)
== END ==
LOC: REG 11:27
PROVIDERS: ATTENDING PHYSICIAN Internal Medicine
DX: Z00.00 Encounter for general adult medical examination without abnormal findings (principal)
CPT/HCPCS: 36415; 80053; 80061; 84443; 85025

== ENCOUNTER → 2025-03-05 11:53 | Outpatient (REF) | payer OTHER, SELFPAY | LOC: WDC 11:53 | PROVIDERS: ATTENDING PHYSICIAN Internal Medicine | DX: Z12.31 Encounter for screening mammogram for malignant neoplasm of breast (principal) | CPT/HCPCS: 77063; 77067 ==